=== PATIENT | male | born 1965 | race Caucasian/White ===

== ENCOUNTER 2023-11-25 14:39 | Outpatient (REF) | payer MEDICAID, SELFPAY ==
[2023-11-25 21:33] LABS: Abs Immature Grans 0.03 10^3/uL (0.0-0.06); Absolute Basophil Count 0.06 10^3/uL (0.0-0.2); Absolute Eosinophil Count 0.37 10^3/uL (0.0-0.7); Absolute Lymphocyte Count 2.37 10^3/uL (1.2-3.4); Absolute Monocyte Count 0.48 10^3/uL (0.1-0.8); Basophils % 0.8; Eosinophils % 5.2; HGB 15.6 g/dL (13.5-17.5); Immature Grans % 0.4; Lymphocytes % 33.3; MCH 31.9 pg (27.0-33.0); MCHC 35.5 % (32.0-36.0); MCV 90 fL (80-95); MPV 11.2 fL (8.0-11.0); Monocytes % 6.8; Neutrophils % 53.5; Platelet Count 241 10^3/uL (130-400); RBC 4.89 10^6/uL (4.36-5.78); RDW 11.5 % (11.8-14.1); RDW-SD 37.8 fL; WBC 7.11 10^3/uL (4.4-10.8)
[2023-11-25 21:53] LABS: ALT 58 U/L (16-63); AST 30 U/L (15-37); Albumin 4.1 g/dL (3.4-5.0); Alkaline Phosphatase 76 U/L (46-116); Anion Gap 12.2 mmol/L (3-11); BUN 19 mg/dL (7-18); Bilirubin, Total 0.2 mg/dL (0.2-1.0); CO2 26.8 mmol/L (21.0-32.0); CREATININE 1.1 mg/dL (0.70-1.30); Calcium 9.4 mg/dL (8.5-10.1); Chloride 107 mmol/L (98-107); Estimated GFR 78.79 (mL/min/1.73m2); Glucose 143 mg/dL (74-106); Potassium 3.4 mmol/L (3.5-5.1); Sodium 146 mmol/L (136-145); Total Protein 7.3 g/dL (6.4-8.2)
== END 2023-11-25 14:40 | disposition home or self-care (01) ==
LOC: LBN 14:39
PROVIDERS: Visit Provider Nurse Practitioner Family
DX: R10.30 Lower abdominal pain, unspecified (principal); M54.59 Other low back pain
CPT/HCPCS: 80053; 85025

== ENCOUNTER → 2023-11-26 08:16 | Outpatient (CLI) | payer MEDICAID, SELFPAY ==
--- NOTE | 2023-11-26 08:00 | DI.US_ITS ---
Exam(s) US RENAL EXAM: US RENAL CLINICAL HISTORY: evaluate renal pathology,flank pain, r10.9. TECHNIQUE: Schroeder scale, color and spectral Doppler were used. COMPARISON: No exams were available for comparison FINDINGS: Renal size in cm: Right: 10.3 left: 9.5 Echogenicity: Normal Hydronephrosis: No Cyst or mass: No Nephrolithiasis: No Bladder:No stones, wall thickening or mass. No trabeculation. Diverticula. Question of layering de bris versus artifact. Prevoid vol:723 cc Postvoid vol:0 cc Prostate not visualized. IMPRESSION: Kidneys are unremarkable. Compression of some debris within the urinary bladder. Correlation with u rinalysis could be obtained. DATA REPOSITORY:
== END ==
PROVIDERS: Visit Provider Nurse Practitioner Family
DX: R10.31 Right lower quadrant pain (principal); R10.32 Left lower quadrant pain; N32.89 Other specified disorders of bladder
CPT/HCPCS: 76770